=== PATIENT | female | born 1970 | race Caucasian/White ===

== ENCOUNTER 2022-04-05 16:20 | Emergency (ER) | payer SELFPAY ==
[~2022-04-05] VITALS: Ht 152.4 cm; Wt 68.0 kg
[2022-04-05] VITALS (10 sets, daily range): BP systolic 86–134; BP diastolic 43–78
[2022-04-05 17:19] LABS: HEMATOCRIT 40.6 % (37.0-47.0); IMMATURE GRANULOCYTES 0.3 % (0.0-5.0); MEAN CELL VOLUME 96.4 fL CALC (80.0-100.0); MEAN CORPUSCULAR HGB 33.3 pG CALC (26.0-32.0); MEAN CORPUSCULAR HGB CONC 34.5 g/dL CAL (32.0-36.0); NEUT# 10.01 thou/uL (2.00-7.15); RED BLOOD COUNT 4.21 mill/uL (4.20-5.60); RED CELL DISTRI WIDTH 11.7 % (11.5-15.5)
[2022-04-05 17:30] LABS: ALBUMIN 4.4 g/dL (3.2-5.0); ALKALINE PHOSPHATASE 78 u/l (38-126); ANION GAP 12 (6-22 (CALC)); BILIRUBIN, TOTAL 0.5 mg/dL (0.0-1.4); BUN 19 mg/dL (7-17); BUN/CREATININE RATIO 30 (12-20 (CALC)); CARBON DIOXIDE 22 mmol/l (22-30); CHLORIDE 109 mmol/l (95-108); CREATININE 0.6 mg/dL (0.5-1.0); GFR FOR AFR.AMER. > 60 ML/MIN (>=60 (CALC)); GFR OTHER RACES > 60 ML/MIN (>=60 (CALC)); SGOT/AST 35 u/l (14-36); SODIUM 138 mmol/l (137-146); TOTAL PROTEIN 7.6 g/dL (6.3-8.2)
[2022-04-05] MEDS ORDERED: ONDANSETRON4 MG PO (19:19)
[2022-04-05] MEDS ORDERED: ZOMIG2.5 M1 PO (19:19)
== END 2022-04-05 19:26 | disposition home or self-care (01) | DRG 103 ==
LOC: ED 16:20
PROVIDERS: Nurse Practitioner
DX: G43.909 Migraine, unspecified, not intractable, without status migrainosus (principal)